=== PATIENT | female | born 1950 | race Asian ===

== ENCOUNTER 2018-03-04 08:33 | Day surgery (SDC) | payer BC ==
[2018-03-04] MEDS ORDERED: PROPOFOL 60 ML (10:00)
== END 2018-03-04 11:15 | disposition home or self-care (01) ==
LOC: GIL 08:33
DX: Z12.11 Encounter for screening for malignant neoplasm of colon (principal); K57.90 Diverticulosis of intestine, part unspecified, without perforation or abscess without bleeding; K64.8 Other hemorrhoids; K64.4 Residual hemorrhoidal skin tags; R12 Heartburn; E78.5 Hyperlipidemia, unspecified; I10 Essential (primary) hypertension
CPT/HCPCS: 43239; 88305; 88312